=== PATIENT | female | born 1945 | race Caucasian/White ===

== ENCOUNTER 2018-10-11 15:43 | Emergency (ER) | payer OTHER ==
--- NOTE | 2018-10-11 15:52 | PDOC ---
History of Present Illness - General Chief Complaint: Pain Stated Complaint: RIGHT HAND PAIN Time Seen by Provider: 10/11/18 15:50 - History of Present Illness Initial Comments: 10/11/18 16:47 73yo female with a hx of htn, hld, and osteoarthritis presents to the ED for eval of right wrist and hand swelling and pain. Denies trauma. States she was cooking maurizio dinner on saturday. States on saturday she woke up with pain in the hand and wrist. Pain radiates along the ulnar surface of the wrist. Pt denies injuries. Son at the bedside states she does walk with a cane and uses the cane with the R hand. Pt denies f/c. No redness. +warmth to the wrist and hand. Pt denies paresthesias. Pain with ROM of the wrist-flexion and extension. Less pain with supination and pronation. Pmhx: htn, osteoporosis, osteoarthritis, depression Pshx: appy, boby, hysterectomy, knee surgery Past History - Past Medical History Allergies/Adverse Reactions: Allergies Allergy/AdvReac Type Severity Reaction Status Date / Time Fish Containing Products Allergy Intermediate Vomiting Verified 10/11/18 15:46 codeine Allergy Mild Vomiting Verified 10/11/18 15:45 Home Medications: Ambulatory Orders Amlodipine Besylate [Norvasc -] 10 mg PO DAILY 08/30/12 A/C/E/Zinc/Sod Selenate/Copper [Prosight Tablet] 1 each PO BID 03/08/16 Acetaminophen [Tylenol .Extra-Strength -] 500 mg PO PRN PRN 03/08/16 Aspirin [ASA -] 81 mg PO DAILY 03/08/16 Calcium Carbonate/Vitamin D3 [Calcium 600-Vit D3 200 Tablet] 2 each PO DAILY Mirtazapine [Remeron Soltab -] 15 mg PO HS 03/08/16 Alendronate Sodium [Binosto] 70 mg PO WEEKLY 10/11/18 Ibuprofen [Motrin -] 600 mg PO TID PRN #21 tablet 10/11/18 Cardiac Disorders: Yes HTN: Yes - Suicide/Smoking/Psychosocial Hx Smoking Status: No Smoking History: Never smoked Have you smoked in the past 12 months: No Number of Cigarettes Smoked Daily: 0 Hx Alcohol Use: No Drug/Substance Use Hx: No Substance Use Type: None Review of Systems - Review of Systems Able to Perform ROS?: Yes Is the patient limited Maori proficient: No Constitutional: No: Chills, Fever HEENTM: No: Nose Pain, Throat Pain Respiratory: No: Cough, Shortness of Breath Cardiac (ROS): No: Chest Pain, Lightheadedness ABD/GI: No: Diarrhea, Nausea, Vomiting, Abdominal cramping : No: Burning, Dysuria Musculoskeletal: Yes: Joint Pain, Joint Swelling, Other (R hand and wrist pain) Integumentary: No: Erythema, Rash Neurological: No: Headache, Numbness, Paresthesia, Tingling, Weakness All Other Systems: Reviewed and Negative *Physical Exam - Vital Signs 10/11/18 16:50 Selected Entries 10/11/18 15:45 Temperature 97.9 F Pulse Rate 80 Respiratory 16 Rate Blood Pressure 132/75 Blood Pressure 94 Mean O2 Sat by Pulse 100 Oximetry (%) Weight 54.431 kg - Physical Exam General Appearance: Yes: Nourished, Appropriately Dressed. No: Apparent Distress HEENT: positive: EOMI, Normal Voice Neck: positive: Supple Respiratory/Chest: positive: Lungs Clear, Normal Breath Sounds. negative: Respiratory Distress Cardiovascular: positive: Regular Rhythm, Regular Rate, S1, S2 Gastrointestinal/Abdominal: positive: Normal Bowel Sounds, Soft. negative: Guarding, Rebound, Tenderness Musculoskeletal: positive: Normal Inspection Extremity: positive: Normal Capillary Refill, Tender, Swelling (right wrist and hand swelling, ttp over the ulnar and radial aspect of the wrist, pain with active rom, pain with flexion and extension of the wrist) Integumentary: positive: Normal Color, Dry, Warm Neurologic: positive: dobby loom fixer II-XII NML intact, Fully Oriented, Alert, Normal Mood/ Affect, Motor Strength 02/15 Medical Decision Making - Medical Decision Making 10/11/18 16:52 73yo female with R hand and wrist pain -suspect arthritis flare up -no redness to suspect cellulitis or infection -limited ROM secondary to pain -will give toradol for pain, will obtain xrays -will monitor and reassess 10/11/18 17:37 xray shows arthritic changes to the wrist and hand suspect arthritis flare up will place in a wrist splint for comfort discussed antiinflamm discussed follow up with ortho discussed ice 20 min on and off pt feels better after toradol stable for dc to home *DC/Admit/Observation/Transfer Diagnosis at time of Disposition: Wrist arthritis - Discharge Dispostion Disposition: HOME Condition at time of disposition: Stable Decision to Admit order: No - Prescriptions Prescriptions: Ibuprofen [Motrin -] 600 mg PO TID PRN #21 tablet PRN Reason: Pain - Referrals Referrals: Declan Charles MD [Staff Physician] - Josue Samson MD [Staff Physician] - - Patient Instructions Printed Discharge Instructions: DI for Arthritis Additional Instructions: Please take all medications as prescribed. Please make an appointment to see the orthopedist in the next 2-3 days. Please follow up with your PMD. Please apply ice to the area- 20 min on and 20 min off. Please return to the ED with any further concerns or complaints. - Post Discharge Activity
[2018-10-11 16:01] VITALS: BP 132/75; PULSE 80; TEMP 97.9; BMI 20.5
[2018-10-11] MEDS ORDERED: KETOROLAC TROMETHAMINE 60 MG/2 ML VIAL IM ONE (16:27)
[2018-10-11] MEDS ORDERED: KETOROLAC TROMETHAMINE 60 MG/2 ML VIAL ONE (16:32)
== END 2018-10-11 17:50 | disposition home or self-care (01) ==
LOC: FER 15:43
DX: M13.831 Other specified arthritis, right wrist (principal); I10 Essential (primary) hypertension; E78.5 Hyperlipidemia, unspecified
CPT/HCPCS: 73110-TC-RT-FY; 73130-TC-RT-FY; 99282-25

== ENCOUNTER 2019-06-22 21:32 | Emergency (ER) | payer OTHER ==
[2019-06-22 21:41] VITALS: BP 157/81; PULSE 77; TEMP 98.1; BMI 21.4
[2019-06-22] MEDS ORDERED: ACETAMINOPHEN 500 MG TABLET (FP) PO ONE (22:11)
[2019-06-22] MEDS ORDERED: ACETAMINOPHEN 500 MG TABLET (FP) ONE (22:14)
--- NOTE | 2019-06-22 23:37 | PDOC ---
Documentation entered by Avi Sheridan SCRIBE, acting as scribe for Velia Alvarez MD. Velia Alvarez MD: This documentation has been prepared by the Arvin hines Aiswarya, SCRIBE, under my direction and personally reviewed by me in its entirety. I confirm that the documentation accurately reflects all work, treatment, procedures, and medical decision making performed by me. History of Present Illness - General Chief Complaint: Pain Stated Complaint: FALL Time Seen by Provider: 06/22/19 21:37 - History of Present Illness Initial Comments: 06/22/19 22:24 The patient is a 74 year old female, with a significant PMH of COPD, HTN, HLD, depression and arthritis, who presents to the emergency department for evaluation of a fall that occurred today. The patient states she fell when she stepped on an elevated sidewalk.Patient notes small abrasion to her nose and left knee. She also endorses associated symptoms of frontal and occipital headache. Patient admits to LOC for about 10 mins and was unable to move. The patient denies any numbness or tingling. Denies decrease ROM and able to ambulate. Patient states no neurological deficit. Denies chest pain, shortness of breath, headache and dizziness. Allergies: NKDA Past surgical history: None reported Social history: None reported Past History - Past Medical History Allergies/Adverse Reactions: Allergies Allergy/AdvReac Type Severity Reaction Status Date / Time Fish Containing Products Allergy Intermediate Vomiting Verified 06/22/19 21:33 codeine Allergy Mild Vomiting Verified 06/22/19 21:33 Home Medications: Ambulatory Orders Amlodipine Besylate [Norvasc -] 10 mg PO DAILY 08/30/12 A/C/E/Zinc/Sod Selenate/Copper [Prosight Tablet] 1 each PO BID 03/08/16 Aspirin [ASA -] 81 mg PO DAILY 03/08/16 Calcium Carbonate/Vitamin D3 [Calcium 600-Vit D3 200 Tablet] 2 each PO DAILY Mirtazapine [Remeron Soltab -] 15 mg PO HS 03/08/16 Alendronate Sodium [Binosto] 70 mg PO SA 10/11/18 Ibuprofen [Motrin -] 600 mg PO TID PRN #21 tablet 10/11/18 Cardiac Disorders: Yes COPD: No HTN: Yes Hypercholesterolemia: Yes Psychiatric Problems: Yes (DEPRESSION) Other medical history: Arthritis - Surgical History Cholecystectomy: Yes - Suicide/Smoking/Psychosocial Hx Smoking Status: No Smoking History: Never smoked Have you smoked in the past 12 months: No Number of Cigarettes Smoked Daily: 0 Information on smoking cessation initiated: No Hx Alcohol Use: No Drug/Substance Use Hx: No Substance Use Type: None Review of Systems - Review of Systems Able to Perform ROS?: Yes Comments:: 06/22/19 22:24 GENERAL/CONSTITUTIONAL: No fever or chills. No weakness. HEAD, EYES, EARS, NOSE AND THROAT: No change in vision. No ear pain or discharge. No sore throat. CARDIOVASCULAR: No chest pain or shortness of breath. RESPIRATORY: No cough, wheezing, or hemoptysis. GASTROINTESTINAL: No nausea, vomiting, diarrhea or constipation. GENITOURINARY: No dysuria, frequency, or change in urination. MUSCULOSKELETAL: No joint or muscle swelling or pain. No neck or back pain. SKIN: +left knee and bridge of nose abrasion NEUROLOGIC: No headache, vertigo, loss of consciousness, or change in strength/ sensation. ENDOCRINE: No increased thirst. No abnormal weight change. HEMATOLOGIC/LYMPHATIC: No anemia, easy bleeding, or history of blood clots. ALLERGIC/IMMUNOLOGIC: No hives or skin allergy. *Physical Exam - Vital Signs Last Vital Signs Temp Pulse Resp BP Pulse Ox 98.1 F 77 18 157/81 100 06/22/19 21:35 06/22/19 21:35 06/22/19 21:35 06/22/19 21:35 06/22/19 21:35 - Physical Exam Comments: 06/22/19 22:25 GENERAL: Awake, alert, and fully oriented, in no acute distress HEAD: No signs of trauma EYES: PERRLA, EOMI, sclera anicteric, conjunctiva clear ENT: Auricles normal inspection, hearing grossly normal, nares patent, oropharynx clear without exudates. Moist mucosa NECK: Normal ROM, supple, no lymphadenopathy, JVD, or masses BACK: No spinous process tenderness or step off LUNGS: Breath sounds equal, clear to auscultation bilaterally. No wheezes, and no crackles HEART: Regular rate and rhythm, normal S1 and S2, no murmurs, rubs or gallops ABDOMEN: Soft, nontender, normoactive bowel sounds. No guarding, no rebound. No masses EXTREMITIES: Normal range of motion, no edema. No clubbing or cyanosis. No cords, erythema, or tenderness NEUROLOGICAL: Cranial nerves II through XII grossly intact. Normal speech, normal gait SKIN:+Abrasion to the left knee and full ROM.+Abrasion and contusion to the right MCP joint. ED Treatment Course - RADIOLOGY Radiology Studies Ordered: Category Date Time Status CERVICAL SPINE CT W/O CONTR [CT] Stat CT Scan 06/22/19 22:[address] WITHOUT CONTRAST [CT] Stat CT Scan 06/22/19 22:02 Completed HAND- RIGHT [RAD] Stat Radiology 06/22/19 22:02 Taken - Medications Given in the ED: ED Medications Discontinued Medications Generic Name Dose Route Start Last Admin Trade Name Freq PRN Reason Stop Dose Admin Acetaminophen 1,000 mg 06/22/19 22:11 06/22/19 22:31 Tylenol - PO 06/22/19 22:12 1,000 mg ONCE ONE Administration Medical Decision Making - Medical Decision Making 06/22/19 23:37 pt presents to the ED after mechanical fall from standing. Questionable LOC. Not on any anticoagulation. Tetanus UTD. Ambulatory at the scene. Ct head and C spine checked to rule out intracrainal or cervical spinal injury and are negative. Will discharge home with instructions to return to the ED for worsening symptoms. *DC/Admit/Observation/Transfer Diagnosis at time of Disposition: Contusion of face Qualifiers: Encounter type: initial encounter Qualified Code(s): S00.83XA - Contusion of other part of head, initial encounter Contusion of neck Qualifiers: Encounter type: initial encounter Qualified Code(s): S10.93XA - Contusion of unspecified part of neck, initial encounter - Discharge Dispostion Disposition: HOME Condition at time of disposition: Good Decision to Admit order: No - Referrals - Patient Instructions Printed Discharge Instructions: DI for Closed Head Injury Additional Instructions: you came to the ED because you fell and hit your head. We did a CT scan of your head and C spine which showed no injuries. We did an xray of your hand, which showed only the old, healed fracture that was there before. You may feel sore for the next few days, but should return to the ED immediately for severe pain, especially for severe headache or headache with nausea and vomiting, other new or worsening symptoms. Call your doctor to make a follow up appointment within one week. - Post Discharge Activity
== END 2019-06-22 23:48 | disposition home or self-care (01) ==
LOC: FER 21:32
DX: S10.93XA Contusion of unspecified part of neck, initial encounter (principal); S00.83XA Contusion of other part of head, initial encounter; F32.9 Major depressive disorder, single episode, unspecified; E78.00 Pure hypercholesterolemia, unspecified; I10 Essential (primary) hypertension; J44.9 Chronic obstructive pulmonary disease, unspecified; W18.39XA Other fall on same level, initial encounter; Y93.89 Activity, other specified; Y99.8 Other external cause status
CPT/HCPCS: 70450-TC; 72125-TC; 73130-TC-RT-FY; 99282-25